=== PATIENT | male | born 1995 | race African-American/Black ===

== ENCOUNTER 2017-05-10 12:48 | Emergency (ER) | payer SELFPAY ==
[~2017-05-10] VITALS: Ht 185.4 cm; Wt 96.0 kg
[2017-05-10 15:08] VITALS: BP 131/71
[2017-05-10] MEDS ORDERED: IBUPROFEN 800MG TABLET PO ONE (15:15)
== END 2017-05-10 18:50 | disposition left against medical advice (07) ==
LOC: ER 15:03
DX: R51 Headache (principal); M54.5 Low back pain; V47.5XXA Car driver injured in collision with fixed or stationary object in traffic accident, initial encounter; Y93.9 Activity, unspecified; Y92.411 Interstate highway as the place of occurrence of the external cause
CPT/HCPCS: 99281